=== PATIENT | male | born 1965 | race Caucasian/White ===

== ENCOUNTER 2017-03-27 19:47 | Emergency (ER) | payer MEDICARE ==
[2017-03-27 20:10] LABS: BASOPHIL# 0.2 X 10^3uL (0.0-0.1); BASOPHILS 2.8 % (0.0-2.0); EOSINOPHILS 1.6 % (0.0-6.0); EOSINOPHILS# 0.1 X 10^3uL (0.0-0.4); HEMATOCRIT 48.8 % (42.0-54.0); HEMOGLOBIN 16.6 g/dL (14.0-18.0); LYMPHOCYTES# 1.6 X 10^3uL (0.8-3.8); MEAN CORPUS. HGB CONCENTRATION 34.1 g/dL (32.0-36.0); MEAN CORPUSCULAR HEMOGLOBIN 29.6 pg (29.0-35.0); MEAN PLATELET VOLUME 9.1 fL (7.4-10.4); MONOCYTES 6.4 % (2.0-10.0); MONOCYTES# 0.5 X 10^3uL (0.2-1.0); NEUTROPHILS 69.2 % (54.0-75.0); NEUTROPHILS# 5.7 X 10^3uL (2.6-6.7); PLATELET COUNT 195 X 10^3uL (130-440); RED BLOOD COUNT 5.61 X 10^6uL (4.20-6.10); RED CELL DISTRIBUTION WIDTH 13.3 % (11.5-14.5); WHITE BLOOD COUNT 8.1 X 10^3uL (3.9-10.7)
[2017-03-27 20:15] LABS: BLOOD UREA NITROGEN 13 mg/dL (9-20); CALCIUM 9.7 mg/dL (8.4-10.2); CHLORIDE 96 mmol/L (98-107); CREATININE 0.8 mg/dL (0.7-1.3); EST GLOMERULAR FILTRATION RATE > 60 mL/min; GLUCOSE 251 mg/dL (70-100); SODIUM 139 mmol/L (137-145)
[2017-03-27 20:27] LABS: TROPONIN I 0.018 ng/mL (0.00-0.034)
[2017-03-27] MEDS ORDERED: FUROSEMIDE 40 MG/4 ML VIAL ONE (20:32)
[2017-03-27] MEDS ORDERED: ALPRAZolam 0.5 MG TABLET PO ONE (20:57)
--- NOTE | 2017-03-28 00:35 | ER NURSING DOCUMENTATION ---
Nurse's Notes [facility] Name:Jesús Epperson Age:51 yrs Sex:Male :1965 Arrival Date:03/27/2017 Time:19:47 BedTrauma-C Private MD: Diagnosis:CHF (Congestive Heart Failure) Presentation: 03/27 19:50 Presenting complaint: Patient states: Driving to [place] when felt SOB. Has been 4 going on for approx. 8 hours. Transition of care: Home. 19:50 Method Of Arrival: Walk In [facility] 19:50 Asprin Given Taken by pt bar captain. 4 20:40 Acuity: FELICE 3 [facility] Triage Assessment: 19:50 General: Appears distressed, uncomfortable, Behavior is cooperative. Pain: Denies pain. [facility] EENT: No deficits noted. Neuro: No deficits noted. Cardiovascular: Chest pain is denied. Respiratory: Airway is patent Breath sounds are diminished bilaterally. GI: No deficits noted. : No deficits noted. Derm: No deficits noted. Musculoskeletal: No deficits noted. Historical: - Home Meds: 1. alprazolam 0.5 mg oral tab 2. carvedilol 3.125 mg oral tab 3. Celebrex 200 mg oral cap 4. Eliquis 5 mg oral tab 5. enalapril maleate 10 mg oral tab 6. furosemide 20 mg oral tab 7. [place] 10-325 mg oral tab 8. isosorbide mononitrate 30 mg oral Tb24 9. metformin 500 mg oral Tb24 10. oxycodone 15 mg oral tab 11. pantoprazole 40 mg oral grps 12. simvastatin 40 mg oral tab 13. spironolactone 25 mg oral tab 14. Tikosyn 500 mcg oral cap - Tetanus: < 10 years. - Ebola Screening: : No symptoms or risks identified at this time. . - Immunization history: Vaccine Information Sheet provided pneumococcal vaccine, Flu Vaccine < 1 year. - Social history: Smoking status: Patient uses tobacco products and is smoker, current status unknown. Screenin:50 Infectious Disease Risk None. Abuse screen: Denies threats or abuse. [facility] 03/28 00:28 Nutritional screening: No deficits noted. [facility] Assessment: 03/27 19:50 See Triage Assessment done by same RN. [facility] 19:50 Pain: Pain began 1 day ago. mk4 19:50 Pain: Pain does not radiate. mk4 Vital Signs: 19:53 BP 152 / 99 (auto/); lc 19:56 Pulse 85 MON; Resp 18; Pulse Ox 96% ; lc 20:16 Pulse 88 MON; Resp 21; Pulse Ox 97% ; lc 20:36 Pulse 81 MON; Resp 37; Pulse Ox 96% ; lc 20:39 BP 117 / 74 (auto/); lc 20:39 Pulse 90; Resp 20; Pulse Ox 95% on 2 lpm NC; mv 22:16 BP 105 / 78; Pulse 91; Resp 17; Pulse Ox 93% on R/A; mv 22:37 BP 105 / 78; Pulse 73; Resp 18; Temp 98.2; Pulse Ox 93% on R/A; mv 03/28 00:33 mk4 00:33 output = 1200ml clear urine mk4 ED Course: 03/27 19:49 Patient arrived in ED. jt 19:50 Valuables Remains with patient Patient has correct armband on for positive mk4 identification. Placed in gown. Bed in low position. Call light in reach. Side rails up X 1. Side rails up X2. Noise minimized. Lights dimmed. Cool cloth applied. Head of bed elevated. Family accompanied patient. 19:53 Noel Chen MD is Attending Physician. sc 19:56 Malu Mccarthy is Primary Nurse. mk4 20:00 Port Xray Completed. ms 20:00 Oxygen Oxygen administration via nasal cannula @ 2L/min. lc 20:29 Inserted peripheral IV: 20 gauge in left hand saline lock:. lc 20:30 teletypesetter monitor on. Pulse ox on. lc 20:41 Triage completed. 4 22:41 EKG attached bw2 Administered Medications: 20:28 Drug: Lasix 40 mg; Route: IVP; Rate: 40 bolus; Infused Over: 5 mins; Site: right 4 antecubital; 03/28 00:31 Follow up: Response: No adverse reaction [facility] 03/27 20:46 Drug: Xanax Tablet 0.5 mg; Route: PO; Point of Care Testing: Urine Dip: 20:06 pH: 5.0; ; Specific [place]: 1.005; Ketones: Negative; Glucose: Negative; Protein: lc Negative; Leukocytes: Negative; Nitrite: Negative ; Blood: Negative; Bilirubin: Negative ; Urobilinogen: Normal Outcome: 21:08 Discharge ordered by MD. kevin 22:37 Discharged to home ambulatory. mv 22:37 Condition: improved 22:37 Discharge Assessment: Patient awake, alert and oriented x 3. No cognitive and/or functional deficits noted. Patient verbalized understanding of disposition instructions. 22:37 Discharge instructions given to patient, Instructed on discharge instructions, follow up and referral plans. 22:37 IV D/Marcio 03/28 00:34 Patient left the ED. mk4 Signatures: Shala Enriquez RN RN Noel Lobato MD MD sc Strickland, Mary ms King, Malu 4 Dulce Maria, shamar Woodson, [facility]
--- NOTE | 2017-03-28 00:35 | ER PHYSICIAN DOCUMENTATION ---
Physician Documentation [facility] Name:Jesús Epperson Age:51 yrs Sex:Male :1965 Arrival Date:03/27/2017 Time:19:47 BedTrauma-C Private MD: Noel Carter Disposition: 03/27 21:08 Critical Care: not applicable. sc Disposition: 03/27/17 21:08 Discharged to Home/Self Care. Impression: CHF (Congestive Heart Failure). - Condition is Good. - Discharge Instructions: CHF, General. - Medical Reconciliation form form. - Follow up: Private Physician; When: 2 - 3 days; Reason: Recheck today's complaints, Continuance of care. - Problem is new. - Symptoms have improved. HPI: 19:53 This 51 yrs old Male presents to ER with complaints of dyspnea. sc 21:04 The patient has shortness of breath at rest, with light activity. Onset: The sc symptom(s)/episode began/occurred today, 8 hour(s) ago. Duration: The symptoms are intermittent, with no pattern. The patient's shortness of breath has no apparent modifying factors. Associated signs and symptoms: Pertinent positives: possible water weight gain on vacation. Severity of symptoms: At their worst the symptoms were moderate. The patient has experienced similar episodes in the past, a few times. Historical: - Home Meds: 1. alprazolam 0.5 mg oral tab 2. carvedilol 3.125 mg oral tab 3. Celebrex 200 mg oral cap 4. Eliquis 5 mg oral tab 5. enalapril maleate 10 mg oral tab 6. furosemide 20 mg oral tab 7. [place] 10-325 mg oral tab 8. isosorbide mononitrate 30 mg oral Tb24 9. metformin 500 mg oral Tb24 10. oxycodone 15 mg oral tab 11. pantoprazole 40 mg oral grps 12. simvastatin 40 mg oral tab 13. spironolactone 25 mg oral tab 14. Tikosyn 500 mcg oral cap - Tetanus: < 10 years. - Ebola Screening: : No symptoms or risks identified at this time. . - Immunization history: Vaccine Information Sheet provided pneumococcal vaccine, Flu Vaccine < 1 year. - Social history: Smoking status: Patient uses tobacco products and is smoker, current status unknown. ROS: 21:05 Constitutional: Negative for fever, chills, and weight loss. sc Eyes: Negative for injury, pain, redness, and discharge. ENT: Negative for injury, pain, and discharge. Neck: Negative for injury, pain, and swelling. Cardiovascular: Negative for chest pain, palpitations, and edema. Abdomen/GI: Negative for abdominal pain, nausea, vomiting, diarrhea, and constipation. Back: Negative for injury and pain. Skin: Negative for injury, rash, and discoloration. 21:05 Neuro: Negative for headache, weakness, numbness, tingling, and seizure. sc 21:05 Respiratory: Positive for shortness of breath, Negative for cough, hemoptysis, orthopnea, pleurisy, sputum production, wheezing. Exam: Constitutional: This is a well developed, well nourished patient who is awake, alert, and in no acute distress. Head/Face: Normocephalic, atraumatic. Eyes: Pupils equal round and reactive to light, extra-ocular motions intact. Lids and lashes normal. Conjunctiva and sclera are non-icteric and not injected. Cornea within normal limits. Periorbital areas with no swelling, redness, or edema. ENT: Nares patent. No nasal discharge, no septal abnormalities noted. Tympanic membranes are normal and external auditory canals are clear. Oropharynx with no redness, swelling, or masses, exudates, or evidence of obstruction, uvula midline. Mucous membranes moist. Neck: Trachea midline, no thyromegaly or masses palpated, and no cervical lymphadenopathy. Supple, full range of motion without nuchal rigidity, or vertebral point tenderness. No meningismus. Chest/axilla: Normal chest wall appearance and motion. Nontender with no deformity. No lesions are appreciated. Abdomen/GI: Soft, non-tender, with normal bowel sounds. No distension or tympany. No guarding or rebound. No evidence of tenderness throughout. Back: No spinal tenderness. No costovertebral tenderness. Full range of motion. 21:06 Skin: Warm, dry with normal turgor. Normal color with no rashes, no lesions, and no sc evidence of cellulitis. 21:06 Cardiovascular: Rate: normal, Rhythm: regular. 21:06 Respiratory: mild respiratory distress is noted, Respirations: tachypnea, that is mild, Breath sounds: rales, that are mild, are scattered. Vital Signs: 19:53 BP 152 / 99 (auto/); lc 19:56 Pulse 85 MON; Resp 18; Pulse Ox 96% ; lc 20:16 Pulse 88 MON; Resp 21; Pulse Ox 97% ; lc 20:36 Pulse 81 MON; Resp 37; Pulse Ox 96% ; lc 20:39 BP 117 / 74 (auto/); lc 20:39 Pulse 90; Resp 20; Pulse Ox 95% on 2 lpm NC; mv 22:16 BP 105 / 78; Pulse 91; Resp 17; Pulse Ox 93% on R/A; mv 22:37 BP 105 / 78; Pulse 73; Resp 18; Temp 98.2; Pulse Ox 93% on R/A; mv 03/28 00:33 mk4 00:33 output = 1200ml clear urine mk4 MDM: 03/27 19:53 Patient medically screened. ca 21:06 Differential diagnosis: Anxiety Reaction CHF exacerbation, Myocardial Infarction sc pulmonary edema, Pulmonary Embolism. Antibiotic administration: Not indicated. Data reviewed: vital signs, nurses notes, lab test result(s), EKG, radiologic studies, and as a result, I will continue to observe the patient, ED diuresis. Data interpreted: Pulse oximetry: on room air is 91 %. Counseling: I had a detailed discussion with the patient and/or guardian regarding: the historical points, exam findings, and any diagnostic results supporting the discharge/admit diagnosis, lab results, radiology results, the need for outpatient follow up, for a referral to a specialist. Medication response: The patient's symptoms have resolved. Response to treatment: the patient's symptoms have markedly improved after treatment. 21:10 ED course: Much improved with diuresis. DVT workup last week with elevated ddimer and sc left calf pain chronic. Intends to follow daily weights and continue increased diuresis while at altitude.. 21:30 ECG:. ca 22:[address] [facility] 03/27 20:15 Order name: CBC AUTO DIF, MDIF/RMOR IF IND [facility] 03/27 20:36 Interpretation: Normal. ca 03/27 20:18 Order name: BASIC METABOLIC PANEL [facility] 03/27 20:36 Interpretation: Normal Except: GLUCOSE 251. ca 03/27 20:29 Order name: BNP,NT-PRO [facility] 03/27 20:36 Interpretation: Abnormal: BNP,NT-PRO 698. ca 03/27 20:29 Order name: TROPONIN I [facility] 03/27 20:36 Interpretation: Normal. ca 03/27 20:52 Order name: DDIMER; Complete Time: 21:04 [facility] 03/27 21:04 Interpretation: Normal: DDIMER 259. ca 03/29 11:44 Order name: CHEST; SINGLE VIEW [address] [facility] 03/27 19:55 Order name: 12-lead EKG; Complete Time: 20:28 ca 03/27 19:55 Order name: Continuous Cardiac Monitoring; Complete Time: 20:30 ca 03/27 19:55 Order name: I & O; Complete Time: 20:30 ca 03/27 19:55 Order name: Iv Saline Lock; Complete Time: 20:30 ca 03/27 19:55 Order name: Oxygen; Complete Time: 20:30 ca 03/27 19:55 Order name: Pulse Ox Continuous; Complete Time: 20:30 sc EC:30 Rate is 88 beats/min. Rhythm is regular. QRS [place] is Normal. NM interval is normal. QRS sc interval is prolonged. QT interval is prolonged. Q waves are Old. T waves are Normal. No ST changes noted. Clinical impression: Abnormal EKG without significant change. Interpreted by me. Reviewed by me. Dispensed Medications: 20:28 Drug: Lasix 40 mg; Route: IVP; Rate: 40 bolus; Infused Over: 5 mins; Site: right [facility] antecubital; 03/28 00:31 Follow up: Response: No adverse reaction [facility] 03/27 20:46 Drug: Xanax Tablet 0.5 mg; Route: PO; Point of Care Testing: Urine Dip: 20:06 pH: 5.0; ; Specific [place]: 1.005; Ketones: Negative; Glucose: Negative; Protein: lc Negative; Leukocytes: Negative; Nitrite: Negative ; Blood: Negative; Bilirubin: Negative ; Urobilinogen: Normal Signatures: Shala Enriquez RN RN lc Chew, Scott, MD MD ca Malu Mccarthy [facility] Ellen Fernandez [facility]
--- NOTE | 2017-03-29 10:57 | RADIOLOGY REPORT ---
A limited single portable view of the chest, without prior films for comparison , demonstrates a bipolar left sided pacemaker. The cardiac silhouette is enlarged. The pulmonary vasculature and lung olivier are unremarkable. No infiltrate, fluid or pneumothorax is seen. IMPRESSION: Left sided pacemaker and mild enlargement of the cardiac silhouette. MTDD
== END 2017-03-28 00:35 | disposition home or self-care (01) ==
LOC: ER 19:47
DX: I50.20 Unspecified systolic (congestive) heart failure (principal); R06.00 Dyspnea, unspecified; R06.02 Shortness of breath; F17.210 Nicotine dependence, cigarettes, uncomplicated; R94.31 Abnormal electrocardiogram [ECG] [EKG]; Z95.0 Presence of cardiac pacemaker; Z79.02 Long term (current) use of antithrombotics/antiplatelets; Z79.899 Other long term (current) drug therapy
CPT/HCPCS: 71010; 80048; 83880; 84484; 85025; 85379; 93010; 96374; 99285; J1940